=== PATIENT | female | born 1995 | race Hispanic/Latino ===

== ENCOUNTER 2024-10-30 09:32 | Emergency (ER) | payer OTHER ==
--- OUTSIDE RECORDS SUMMARY | 2024-10-30 09:37 | XMS REPORT | Continuity of Care Document ---
Author Name Unknown Address [address] [facility]. [address] [place] [address] [facility] Address [address] [facility] [address] [place] [address] Care Team Providers Care Inverter And Clipper Name Role Phone OTHER, ENTER NAME IN NOTES Primary Care Physicia n Unavailable MARTHA SIDDIQI Attending Clinician Unavail able LUCIANO HASSAN Attending Clinician Unavailable YURIDIA TERRELL Attending Clinician Unavailab ISIDRO Ibrahim Attending Clinician Unavai ZACHERY Justin Attending Clinician Unavailable AMBREEN_FARHANA Attending Clinician Unavailable CIRILO MUÑIZ Attending Clinician Unavaila LUZ Richards Attending Clinician Unavailabl e Nguyen_Tho Attending Clinician Unavailable SANTI CAMARENA Attending Clinician Unavailab le CHEVY_DEBBIE Attending Clinician Unavailable EVI ERICKSON Attending Clinician Unavailable DR ISAAC MUHAMMAD Attending Clinician Unavaila JAYESH Hale [facility] Attending Clinician Gabbi CAROLYN Nunez Attending Clinician Unavail able COCO KOENIG Attending Clinician Unavailable Georgina Attending Clinician Unavailable PARTHA MICHAEL Attending Clinician Unavail able SIMONE BISHOP Attending Clinician Unavailab cris LOUIS, DR FRAIRE Attending Clinician Unavailable G_Pappas Attending Clinician Unavailable OSEI, DR MOORE Attending Clinician Unavailable CONG MEHTA Attending Clinician [phone] SHERICE HALL Attending Clinician [phone] [facility], PROVIDER Attending Clinician Unava ilkashmir HODGE, DR SMILEY Attending Clinician Unava ilHASEEB Villaseñor Attending Clinician [phone] YOLANDA PONCE Attending Clinician Unaarvind MEHTA, DR GAR Attending Clinician Unavailab cris VILLANUEVA, NURSE Attending Clinician Unavailable UZMA, DR RODRIGUEZ Attending Clinician Unavailable TON ELLER Attending Clinician Unavailab ALEXANDRA Ferro Attending Clinician Unavailable COCO MONTEMAYOR Attending Clinician UnavailNORIS Smith Attending Clinician Unavailable BRITTANY MEDRANO Attending Clinician Unavailable HOWARD VERGARA Attending Clinician Unavailable WILBERT SANTORO Attending Clinician Unavailab HARRIET Dumont Attending Clinician Unavailable AMBREEN_FARHANA Admitting Clinician Unavailable TON KEARNS Admitting Clinician Unavailab CAROLYN Rivera Admitting Clinician Unavail able Nguyen_Tho Admitting Clinician Unavailable CHEVY_DEBBIE Admitting Clinician Unavailable DR ISAAC MUHAMMAD Admitting Clinician Unavaila tona Erickson Admitting Clinician Unavailable DR JUNO LOUIS Admitting Clinician Unavailable Jose J_Mayra Admitting Clinician Unavailable DR TERESA FRANZ Admitting Clinician Unavailable AYESHA, DR SMILEY Admitting Clinician Unava ilkashmir MEHTA, DR GAR Admitting Clinician Unavailab cris GUSMAN, DR RODRIGUEZ Admitting Clinician Unavailable TON ELLER Admitting Clinician UnavailCOCO Rubi Admitting Clinician Unavailabl e Payers Payer Name Policy Type Policy Number Effective Date Expirati on Date Source [facility] [id number] 2022 00:00:00 [facility] (MEDICAID HMO) [id number] 2016 00:00:00 0775 [id number] 2022 00:00:00 [place] [facility] [id number] Problems Condition Name Condition Details Condition Category Status Onset Date Resolution Date Last Treatment Date Treating Clinician Comments Source Allergic rhinitis Allergic Rhinitis Problem Active 05-14 00:00: 00 [facility] Nasal congestion Nasal Congestion Problem Active 05-14 00:00: 00 [facility] Carrier of disorder Carrier of Disorder Problem Active 2017-08 00:00: 00 [facility] Seasonal allergic rhinitis Seasonal Allergic Rhinitis Problem Active 05-02 00:00: 00 [facility] Acute constipati on Acute Constipati on Problem Active 03-18 00:00: 00 [facility] Generalize d headache Generalize d Headache Problem Active 03-18 00:00: 00 [facility] Bipolar disorder Complaint [facility] Posttrauma tic stress disorder Complaint [facility] Anxiety disorder Complaint [facility] Bipolar affective disorder, currently depressed, moderate Complaint [facility] Generalize d anxiety disorder Complaint [facility] History of clinical finding in subject Complaint [facility] History of alcohol abuse Complaint [facility] Long-term current use of drug therapy Complaint [facility] Acute laryngopha ryngitis [facility] 41 weeks gestation of Problem [facility]dominal discomfort Problem [facility] Abdominal pain [facility] Anemia Problem [facility] Infection due to severe acute respirator y syndrome coronaviru s 2 (SARS-CoV- 2) Problem [facility] Cannabinoi d hyperemesi s syndrome Problem [facility] Cannabis abuse Problem [facility] Chronic abdominal pain Problem [facility] Constipati on Problem [facility] Contusion of left knee Problem [facility] Encounter for counseling Problem [facility] Delivery by section of full-term Problem [facility]arrhea Problem [facility] Discomfort during Problem [facility] Elevated liver enzymes Problem [facility] Encounter for laboratory testing for severe acute respirator y syndrome coronaviru s 2 (SARS-CoV- 2) Problem [facility] Enteritis [facility] Influenza- like symptoms Problem [facility] Gastroente ritis Problem [facility] Generalize d abdominal pain Problem [facility]ache Problem [facility] Helicobact er pylori [facility] Hematuria Problem [facility] Hypokalemi a Problem [facility] Ileitis Problem [facility] Muscle strain Problem [facility] Nausea and vomiting Problem [facility] Nausea, vomiting, and diarrhea Problem [facility] Non-reassu ring heart rate or rhythm affecting management of mother Problem [facility] Normal intrauteri ne on ultrasound Problem [facility] Opiate abuse, episodic [facility] Cyst of ovary Problem [facility] Pain [facility] pelvis Problem [facility] test positive Problem [facility] Pruritic rash Problem [facility] Calculus [facility] kidney Problem [facility] Renal colic Problem [facility] Arthralgia of temporoman dibular joint Problem [facility] Upper respirator y tract infection Problem [facility] Vomiting Problem [facility] Worries Problem [facility] Allergies, Adverse Reactions, Alerts Allergy Name Allergy Type Status Severity Reaction(s) Onset Date Inactive Date Treating Clinician Comments Source No known drug allergy Miscella neous allergy Active 2022-08 0 00:00: 00 [facility] No known drug allergy Miscella neous allergy Active 2022-08 0 00:00: 00 [facility] No Known Drug Allergie s DA Active [facility] Social History Social Habit Start Date Stop Date Quantity Comments Source History of tobacco use [facility] Sex Assigned At Female [facility] Non-smoker 2022-06-28 12:00:00 2022-06-28 12:00:00 [facility] Smoking Status Start Date Stop Date Source Never Smoker [facility] Unknown if ever smoked [facility] Medications Ordered Medication Name Filled Medication Name Start Date Stop Date Current Medication? Ordering Clinician Indication Dosage Frequency Signature (SIG) Comments Components Source Amoxicillin /Clavulanat e Potassium (Augmentin *) 875 Mg TAB Amoxicillin /Clavulanat e Potassium (Augmentin *) 875 Mg TAB 2023-08 10:42: 00 Yes 1 [facility] Prednisone (Prednisone *) 20 Mg TAB Prednisone (Prednisone *) 20 Mg TAB 2023-08 10:42: 00 Yes 2 [facility] Pseudoephed -Bromphen-D m (Bromphen/P seudoephedr ine 30-2-10 Mg/5ML) 1 Syp Syrup Pseudoephed -Bromphen-D m (Bromphen/P seudoephedr ine 30-2-10 Mg/5ML) 1 Syp Syrup 2023-08 19:11: 00 Yes 10 [facility] Benzonatate (Tessalon *) 100 Mg CAP Benzonatate (Tessalon *) 100 Mg CAP 2023-08 19:11: 00 Yes 1 [facility] Ondansetron Hcl (Zofran *) 4 Mg Tablet Disint Ondansetron Hcl (Zofran *) 4 Mg Tablet Disint 12-09 17:08: 00 Yes 1 [facility] Elizabeth Johnson - 04:00: 00 02-16 04:00 :00 No 1{Evelia le} [facility] Nirmatrelvi r-Ritonavir 300/100 Mg (Paxlovid 300MG/100MG ) 1 Tab Tab Ther Pack Nirmatrelvi r-Ritonavir 300/100 Mg (Paxlovid 300MG/100MG ) 1 Tab Tab Ther Pack 10-03 10:44: 00 Yes 1 [facility] Azithromyci n (Zithromax Z-Anirudh *) 250 Mg TAB Azithromyci n (Zithromax Z-Anirudh *) 250 Mg TAB 10-03 09:23: 00 Yes 1 [facility] Ketorolac Tromethamin e (Toradol 10 Mg*) 10 Mg TAB Ketorolac Tromethamin e (Toradol 10 Mg*) 10 Mg TAB 02-02 22:23: 00 Yes 1 [facility] Tamsulosin Hcl (Flomax *) 0.4 Mg CAP Tamsulosin Hcl (Flomax *) 0.4 Mg CAP 02-02 22:23: 00 Yes 1 [facility] Dicyclomine Hcl (Dicyclomin e Hcl 20 Mg (Bentyl) *) 20 Mg TAB Dicyclomine Hcl (Dicyclomin e Hcl 20 Mg (Bentyl) *) 20 Mg TAB 12-01 03:37: 00 Yes 20 [facility] Ondansetron Hcl (Zofran *) 4 Mg TAB Ondansetron Hcl (Zofran *) 4 Mg TAB 12-01 03:37: 00 Yes 4 [facility] Ferrous Sulfate (Iron 325 Mg *) 325 Mg TAB Ferrous Sulfate (Iron 325 Mg *) 325 Mg TAB 01-28 20:21: 41 01-28 19:21 :00 No 1 [facility] Acetaminoph en W/ Codeine #3 * (Tylenol Codeine #3 300MG/30MG *) 1 Tab TAB Acetaminoph en W/ Codeine #3 * (Tylenol Codeine #3 300MG/30MG *) 1 Tab TAB 03-26 16:55: 00 03-26 17:31 :00 No 1 [facility] Xulane 150 mcg-35 mcg/24 hr transdermal patch 7 00:00: 00 No 1 patch by Transderma l route 1 time per week for 3 weeks [facility] ferrous sulfate 325 mg (65 mg iron) tablet 3 00:00: 00 No take 1 tablet (325 mg) by oral route 2 times per day [facility] hydroxyzine HCl 10 mg tablet TAKE ONE (1) TABLET BY MOUTH THREE TIMES A DAY NEEDED. hydroxyzine HCl 10 mg tablet TAKE ONE (1) TABLET BY MOUTH THREE TIMES A DAY NEEDED. No hydroxyzin e HCl 10 mg tablet TAKE ONE (1) TABLET BY MOUTH THREE TIMES A DAY NEEDED. [facility] trazodone 50 mg tablet TAKE ONE (1) TABLET BY MOUTH AT BEDTIME trazodone 50 mg tablet TAKE ONE (1) TABLET BY MOUTH AT BEDTIME No trazodone 50 mg tablet TAKE ONE (1) TABLET BY MOUTH AT BEDTIME [facility] Medrol (Anirudh) 4 mg tablets in a dose pack Take 1 dose pk by oral route as directed. Medrol (Anirudh) 4 mg tablets in a dose pack Take 1 dose pk by oral route as directed. No 1dose pk(s) Medrol (Anirudh) 4 mg tablets in a dose pack Take 1 dose pk by oral route as directed. [facility] valacyclovi r 1 gram tablet TAKE 1 TABLET TWICE A DAY BY ORAL ROUTE DIRECTED FOR 10 DAYS. valacyclovi r 1 gram tablet TAKE 1 TABLET TWICE A DAY BY ORAL ROUTE DIRECTED FOR 10 DAYS. No valacyclov ir 1 gram tablet TAKE 1 TABLET TWICE A DAY BY ORAL ROUTE DIRECTED FOR 10 DAYS. [facility] Immunizations Ordered Immunization Name Filled Immunization Name Date Status Comments Source influenza, injectable, quadrivalent, preservative free influenza, injectable, quadrivalent, preservative free Unknown Completed [facility] Tdap Tdap Unknown Completed [facility] Influenza, injectable, MDCK, quadrivalent Influenza, injectable, MDCK, quadrivalent Unknown Completed [facility] Vital Signs Vital Name Observation Time Observation Value Comments S ource BMI (Body Mass Index) 2024-09-11 00:00:00 21.2 kg/m2 [facility] Height 2024-09-11 00:00:00 59 [in_i] [facility] Body Weight 2024-09-11 00:00:00 1681 [oz_av] [facility] BP Systolic 2024-09-11 00:00:00 115 mm[Hg] [facility] BP Diastolic 2024-09-11 00:00:00 74 mm[Hg] [facility] Height 2024-07-04 08:57:[address] [facility] Weight 2024-07-04 08:57:[address] [facility] BMI (Body Mass Index) 2024-07-04 08:57:00 20.5 kg/m2 [facility] Height 2024-07-02 18:00:[address] [facility] Weight 2024-07-02 18:00:[address] [facility] BMI (Body Mass Index) 2024-07-02 18:00:00 20.6 kg/m2 [facility] BP Diastolic 2024-05-14 00:00:00 78 mm[Hg] [facility] Height 2024-05-14 00:00:00 60 [in_i] [facility] BMI (Body Mass Index) 2024-05-14 00:00:00 19.6 kg/m2 [facility] Body Weight 2024-05-14 00:00:00 1606 [oz_av] [facility] BP Systolic 2024-05-14 00:00:00 114 mm[Hg] [facility] BP Systolic 2024-03-17 00:00:00 127 mm[Hg] [facility] Height 2024-03-17 00:00:00 60 [in_i] [facility] Body Weight 2024-03-17 00:00:00 98.8 [lb_av] [facility] BMI (Body Mass Index) 2024-03-17 00:00:00 19.3 kg/m2 [facility] BP Diastolic 2024-03-17 00:00:00 89 mm[Hg] [facility] Body Weight 2023-06-04 00:00:00 1445 [oz_av] [facility] BP Systolic 2023-06-04 00:00:00 119 mm[Hg] [facility] Height 2023-06-04 00:00:00 60 [in_i] [facility] BMI (Body Mass Index) 2023-06-04 00:00:00 17.6 kg/m2 [facility] BP Diastolic 2023-06-04 00:00:00 79 mm[Hg] [facility] BP Diastolic 2023-02-08 00:00:00 87 mm[Hg] [facility] Height 2023-02-08 00:00:00 60 [in_i] [facility] BMI (Body Mass Index) 2023-02-08 00:00:00 17.2 kg/m2 [facility] BP Systolic 2023-02-08 00:00:00 131 mm[Hg] [facility] Body Weight 2023-02-08 00:00:00 88.2 [lb_av] [facility] BP Diastolic 2022-12-21 00:00:00 78 mm[Hg] [facility] Height 2022-12-21 00:00:00 60 [in_i] [facility] BMI (Body Mass Index) 2022-12-21 00:00:00 17.7 kg/m2 [facility] BP Systolic 2022-12-21 00:00:00 122 mm[Hg] [facility] Body Weight 2022-12-21 00:00:00 90.6 [lb_av] [facility] BP Diastolic 2022-09-26 00:00:00 75 mm[Hg] [facility] Height 2022-09-26 00:00:00 60 [in_i] [facility] BMI (Body Mass Index) 2022-09-26 00:00:00 18.7 kg/m2 [facility] BP Systolic 2022-09-26 00:00:00 115 mm[Hg] [facility] Body Weight 2022-09-26 00:00:00 95.8 [lb_av] [facility] BP Diastolic 2022-08-15 00:00:00 71 mm[Hg] [facility] Height 2022-08-15 00:00:00 60 [in_i] [facility] BMI (Body Mass Index) 2022-08-15 00:00:00 17.8 kg/m2 [facility] BP Systolic 2022-08-15 00:00:00 125 mm[Hg] [facility] Body Weight 2022-08-15 00:00:00 91 [lb_av] [facility] BP Diastolic 2022-05-15 00:00:00 76 mm[Hg] [facility] Height 2022-05-15 00:00:00 60 [in_i] [facility] BMI (Body Mass Index) 2022-05-15 00:00:00 17.4 kg/m2 [facility] BP Systolic 2022-05-15 00:00:00 122 mm[Hg] [facility] Body Weight 2022-05-15 00:00:00 1424 [oz_av] [facility] Height 2022-05-02 15:00:00 152.4 CM Weight 2022-05-02 15:00:00 40.82 KG BP Diastolic 2022-02-05 00:00:00 78 mm[Hg] [facility] Height 2022-02-05 00:00:00 60 [in_i] [facility] BMI (Body Mass Index) 2022-02-05 00:00:00 18.1 kg/m2 [facility] BP Systolic 2022-02-05 00:00:00 120 mm[Hg] [facility] Body Weight 2022-02-05 00:00:00 92.6 [lb_av] [facility] BP Diastolic 2021-10-24 00:00:00 82 mm[Hg] [facility] Height 2021-10-24 00:00:00 60 [in_i] [facility] BMI (Body Mass Index) 2021-10-24 00:00:00 19.3 kg/m2 [facility] BP Systolic 2021-10-24 00:00:00 120 mm[Hg] [facility] Body Weight 2021-10-24 00:00:00 99 [lb_av] [facility] Height 2021-08-25 00:00:00 60 [in_i] [facility] BMI (Body Mass Index) 2021-08-25 00:00:00 19.4 kg/m2 [facility] Body Weight 2021-08-25 00:00:00 1592 [oz_av] [facility] BP Diastolic 2021-08-23 00:00:00 77 mm[Hg] [facility] Height 2021-08-23 00:00:00 60 [in_i] [facility] BMI (Body Mass Index) 2021-08-23 00:00:00 19.4 kg/m2 [facility] BP Systolic 2021-08-23 00:00:00 128 mm[Hg] [facility] Body Weight 2021-08-23 00:00:00 1592 [oz_av] [facility] BP Diastolic 2021-07-20 00:00:00 74 mm[Hg] [facility] Height 2021-07-20 00:00:00 60 [in_i] [facility] BMI (Body Mass Index) 2021-07-20 00:00:00 21.1 kg/m2 [facility] BP Systolic 2021-07-20 00:00:00 117 mm[Hg] [facility] Body Weight 2021-07-20 00:00:00 108 [lb_av] [facility] BP Diastolic 2021-06-01 00:00:00 76 mm[Hg] [facility] Height 2021-06-01 00:00:00 60 [in_i] [facility] BMI (Body Mass Index) 2021-06-01 00:00:00 19.9 kg/m2 [facility] BP Systolic 2021-06-01 00:00:00 113 mm[Hg] [facility] Body Weight 2021-06-01 00:00:00 1632 [oz_av] [facility] BP Diastolic 2021-03-03 00:00:00 77 mm[Hg] [facility] Height 2021-03-03 00:00:00 60 [in_i] [facility] BMI (Body Mass Index) 2021-03-03 00:00:00 19.1 kg/m2 [facility] BP Systolic 2021-03-03 00:00:00 113 mm[Hg] [facility] Body Weight 2021-03-03 00:00:00 1568 [oz_av] [facility] Height 2020-12-22 16:00:00 152.4 CM Weight 2020-12-22 16:00:00 43.54 KG BP Diastolic 2020-12-21 00:00:00 60 mm[Hg] [facility] Height 2020-12-21 00:00:00 60 [in_i] [facility] BMI (Body Mass Index) 2020-12-21 00:00:00 18.6 kg/m2 [facility] BP Systolic 2020-12-21 00:00:00 120 mm[Hg] [facility] Body Weight 2020-12-21 00:00:00 1520 [oz_av] [facility] Height 2020-11-23 00:00:00 60 [in_i] [facility] BMI (Body Mass Index) 2020-11-23 00:00:00 18.9 kg/m2 [facility] BP Systolic 2020-11-23 00:00:00 117 mm[Hg] [facility] Body Weight 2020-11-23 00:00:00 96.6 [lb_av] [facility] BP Diastolic 2020-11-23 00:00:00 77 mm[Hg] [facility] BP Diastolic 2020-04-27 00:00:00 90 mm[Hg] [facility] Height 2020-04-27 00:00:00 60 [in_i] [facility] BMI (Body Mass Index) 2020-04-27 00:00:00 18.6 kg/m2 [facility] BP Systolic 2020-04-27 00:00:00 138 mm[Hg] [facility] Body Weight 2020-04-27 00:00:00 95 [lb_av] [facility] Heart Rate 2023-11-20 16:14:15 96.0 /min [facility] Systolic 2023-11-20 16:14:15 128.0 mm[Hg] [facility] Diastolic 2023-11-20 16:14:15 86.0 mm[Hg] [facility] Height 2023-11-20 16:14:15 152.4 cm [facility] Weight Kgs 2023-11-20 16:14:15 41.7 KG [facility] BMI 2023-11-20 16:14:15 18.0 kg/m2 [facility] Weight Kgs 2023-10-21 19:03:20 39.5 KG [facility] BMI 2023-10-21 19:03:20 17.0 kg/m2 [facility] Heart Rate 2023-10-21 19:03:20 99.0 /min [facility] Systolic 2023-10-21 19:03:20 123.0 mm[Hg] [facility] Diastolic 2023-10-21 19:03:20 81.0 mm[Hg] [facility] Height 2023-10-21 19:03:20 152.4 cm [facility] Heart Rate 2022-09-13 17:18:10 94.0 /min [facility] Respiration 2022-09-13 17:18:10 20.0 /min [facility] Systolic 2022-09-13 17:18:10 113.0 mm[Hg] [facility] Diastolic 2022-09-13 17:18:10 80.0 mm[Hg] [facility] Height 2022-09-13 17:18:10 152.4 cm [facility] Weight Kgs 2022-09-13 17:18:10 41.7 KG [facility] BMI 2022-09-13 17:18:10 18.0 kg/m2 [facility] Heart Rate 2022-07-19 20:08:48 76.0 /min [facility] Respiration 2022-07-19 20:08:48 20.0 /min [facility] Systolic 2022-07-19 20:08:48 104.0 mm[Hg] [facility] Diastolic 2022-07-19 20:08:48 70.0 mm[Hg] [facility] Height 2022-07-19 20:08:48 152.4 cm [facility] Weight Kgs 2022-07-19 20:08:48 40.4 KG [facility] BMI 2022-07-19 20:08:48 17.4 kg/m2 [facility] Body height 2019-03-12 10:50:00 60.00 [in_us] [facility] Body Weight 2019-03-12 10:50:00 88.00 [lb_av] [facility] Systolic 2019-03-12 10:50:00 114 mm[Hg] [facility] Diastolic 2019-03-12 10:50:00 75 mm[Hg] [facility] Heart Beat 2019-03-12 10:50:00 86 /min [facility] Body Temperature 2019-03-12 10:50:00 98.00 [degF] [facility] Respiratory Rate 2019-03-12 10:50:00 18 /min [facility] Body mass index 2019-03-12 10:50:00 17.20 kg/m2 [facility] Body height 2018-12-11 16:30:00 60.00 [in_us] [facility] Body Weight 2018-12-11 16:30:00 102.60 [lb_av] [facility] Systolic 2018-12-11 16:30:00 118 mm[Hg] [facility] Diastolic 2018-12-11 16:30:00 79 mm[Hg] [facility] Heart Beat 2018-12-11 16:30:00 94 /min [facility] Body Temperature 2018-12-11 16:30:00 97.80 [degF] [facility] Respiratory Rate 2018-12-11 16:30:00 18 /min [facility] Body mass index 2018-12-11 16:30:00 20.00 kg/m2 [facility] Body height 2018-11-28 11:11:00 60.00 [in_us] [facility] Patient Body Weight 2018-11-28 11:11:00 120.60 [lb_av] [facility] Systolic 2018-11-28 11:11:00 128 mm[Hg] [facility] Diastolic 2018-11-28 11:11:00 84 mm[Hg] [facility] Heart Beat 2018-11-28 11:11:00 76 /min [facility] Body Temperature 2018-11-28 11:11:00 98.30 [degF] [facility] Respiratory Rate 2018-11-28 11:11:00 18 /min [facility] Body mass index 2018-11-28 11:11:00 23.60 kg/m2 [facility] Body height 2018-11-21 16:40:00 60.00 [in_us] [facility] Patient Body Weight 2018-11-21 16:40:00 120.00 [lb_av] [facility] Systolic 2018-11-21 16:40:00 127 mm[Hg] [facility] Diastolic 2018-11-21 16:40:00 85 mm[Hg] [facility] Heart Beat 2018-11-21 16:40:00 88 /min [facility] Body Temperature 2018-11-21 16:40:00 98.70 [degF] [facility] Respiratory Rate 2018-11-21 16:40:00 18 /min [facility] Body mass index 2018-11-21 16:40:00 23.40 kg/m2 [facility] Body height 2018-11-12 13:36:00 60.00 [in_us] [facility] Body Weight 2018-11-12 13:36:00 119.80 [lb_av] [facility] Systolic 2018-11-12 13:36:00 119 mm[Hg] [facility] Diastolic 2018-11-12 13:36:00 79 mm[Hg] [facility] Heart Beat 2018-11-12 13:36:00 90 /min [facility] Body Temperature 2018-11-12 13:36:00 97.80 [degF] [facility] Respiratory Rate 2018-11-12 13:36:00 18 /min [facility] Body mass index 2018-11-12 13:36:00 23.40 kg/m2 [facility] Body height 2018-11-05 15:09:00 60.00 [in_us] [facility] Body Weight 2018-11-05 15:09:00 117.60 [lb_av] [facility] Systolic 2018-11-05 15:09:00 115 mm[Hg] [facility] Diastolic 2018-11-05 15:09:00 75 mm[Hg] [facility] Heart Beat 2018-11-05 15:09:00 82 /min [facility] Body Temperature 2018-11-05 15:09:00 97.70 [degF] [facility] Respiratory Rate 2018-11-05 15:09:00 18 /min [facility] Body mass index 2018-11-05 15:09:00 23.00 kg/m2 [facility] Body height 2018-07-29 14:34:00 60.00 [in_us] [facility] Body Weight 2018-07-29 14:34:00 101.20 [lb_av] [facility] Systolic 2018-07-29 14:34:00 108 mm[Hg] [facility] Diastolic 2018-07-29 14:34:00 64 mm[Hg] [facility] Heart Beat 2018-07-29 14:34:00 88 /min [facility] Body Temperature 2018-07-29 14:34:00 98.30 [degF] [facility] Respiratory Rate 2018-07-29 14:34:00 18 /min [facility] Body mass index 2018-07-29 14:34:00 19.80 kg/m2 [facility] Body height 2018-07-16 08:16:00 60.00 [in_us] [facility] Body Weight 2018-07-16 08:16:00 102.00 [lb_av] [facility] Systolic 2018-07-16 08:16:00 125 mm[Hg] [facility] Diastolic 2018-07-16 08:16:00 73 mm[Hg] [facility] Heart Beat 2018-07-16 08:16:00 91 /min [facility] Body Temperature 2018-07-16 08:16:00 97.40 [degF] [facility] Respiratory Rate 2018-07-16 08:16:00 20 /min [facility] Body mass index 2018-07-16 08:16:00 19.90 kg/m2 [facility] Procedures Procedure Date / Time Performed Performing Clinician Source Esophagogastroduodenoscopy 2022-11-08 00:00:00 [facility] Colonoscopy 2022-11-08 00:00:00 Volodymyr rojas [facility] US, abdomen, complete 2022-09-26 00:00:00 [facility] unlisted imaging order 2021-10-24 00:00:00 [facility] US, transvaginal 2021-07-20 00:00:00 Chadwick samaniego [facility] US, abdomen, complete 2021-03-03 00:00:00 [facility] Delivery 2017-10-10 00:00:00 [facility] Caesarean Section [facility] Encounters Start Date/Time End Date/Time Encounter Type Admission Type Attending Clinicians Care Facility Care Department Encounter ID Source 2023-03-12 15:38:36 Inpatient TEXANA TEXANA [id number] [facility] 2023-02-12 15:09:02 Outpatient [facility] [id number] [facility] 2023-02-12 11:41:05 Inpatient TEXANA TEXANA [id number] [facility] 2022-12-21 08:07:41 Inpatient TEXANA TEXANA [id number] [facility] 2022-10-15 12:30:00 Inpatient MARTHA AHUMADA [facility] [id number] [facility] 2022-09-28 14:40:04 Inpatient TEXANA TEXANA [id number] [facility] 2022-09-13 11:46:34 Inpatient TEXANA TEXANA [id number] [facility] 2022-07-20 08:41:47 Inpatient TEXANA TEXANA [id number] [facility] 2022-07-19 15:26:26 Inpatient TEXANA TEXANA [id number] [facility] 2022-06-28 11:20:30 Inpatient TEXANA TEXANA [id number] [facility] 2024-09-11 00:00:00 2024-09-11 00:00:00 MARBIN MicheleC: [address] [place] [address], [address], [place] [address] , Ph. G [facility] [id number] [facility] 2024-07-04 08:48:00 2024-07-04 10:55:00 Departed Emergency Room [facility] [id number] [facility] 2024-07-04 08:48:00 2024-07-04 10:55:00 Emergency ER LUCIANO HASSAN [facility] [id number] [facility] 2024-07-02 17:55:00 2024-07-02 19:16:00 Emergency ER YURIDIA TERRELL [facility] [id number] [facility] 2024-07-02 17:55:00 2024-07-02 19:16:00 Departed Emergency Room [facility] [id number] [facility] 2023-10-16 08:10:00 2024-06-24 08:45:00 Outpatient SELF/OTHER INDIVIDUAL ISIDRO CHAVIS [id number] [facility] 2024-05-14 00:00:00 2024-05-14 00:00:00 Maria A Parks, ACUTE SPECIALIST: [address], [place] [address] , Ph. [facility] - [facility] [phone] [facility] 2024-03-17 00:00:00 2024-03-17 00:00:00 Debbie Steven, ACUTE SPECIALIST: [address], [place] [address] , Ph. 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 [phone] [facility] 2023-12-10 15:00:00 2023-12-10 17:13:00 Emergency ER YURIDIA TERRELL [facility] [id number] [facility] 2023-12-07 19:11:00 2023-12-07 20:58:00 Emergency ER ZACHERY SKY [facility] [id number] [facility] 2023-10-16 08:10:00 2023-10-16 08:10:00 Outpatient SELF/OTHER INDIVIDUAL ISIDRO CHAVIS [id number] [facility] 2023-10-03 09:14:00 2023-10-03 11:35:00 Emergency ER YURIDIA TERRELL [facility] [id number] [facility] 2023-06-04 00:00:00 2023-06-04 00:00:00 Maria A Parks, ACUTE SPECIALIST: [address] [place] [address] , Ph. [facility] Primary Expansion [id number] [facility] 2023-02-08 00:00:00 2023-02-08 00:00:00 Martha Siddiqi MD: [id number], [address], [place] [address] , Ph. [facility] [id number] [facility] 2023-02-06 00:00:00 2023-02-06 00:00:00 Outpatient AMBREEN_FAR HANA [facility] [id number] [facility] 2023-02-06 00:00:00 2023-02-06 00:00:00 Outpatient AMBREEN_FAR HANA [facility] [id number] [facility] 2023-02-06 00:00:00 2023-02-06 00:00:00 Outpatient AMBREEN_FAR HANA [facility] [id number] [facility] 2023-02-06 00:00:00 2023-02-06 00:00:00 Outpatient AMBREEN_FAR HANA [facility] [id number] [facility] 2023-02-04 12:20:00 2023-02-04 19:07:00 Emergency E CIRILO MUÑIZ [facility] [id number] [facility] 2023-02-04 07:41:00 2023-02-04 11:45:00 Emergency ER LUZ KHAN [facility] [id number] [facility] 2023-02-04 00:00:00 2023-02-04 00:00:00 Outpatient Ngvinay_Lauroo [facility] [id number] [facility] 2023-02-02 19:54:00 2023-02-02 22:51:00 Emergency ER JEANELIALUZ BALLARD [facility] [id number] [facility] 2023-01-17 17:04:00 2023-01-17 21:06:00 Emergency ER SANTI CAMARENA [facility] [id number] [facility] 2022-12-21 00:00:00 2022-12-21 00:00:00 Outpatient LISTER_MELI SSA [facility] [id number] [facility] 2022-12-21 00:00:00 2022-12-21 00:00:00 Outpatient LISTER_MELI SSA [facility] [id number] [facility] 2022-12-21 00:00:00 2022-12-21 00:00:00 Martha Siddiqi MD: [id number], [address], [place] [address] , Ph. [facility] [id number] [facility] 2022-11-30 23:02:00 2022-12-01 04:21:00 Emergency ER EVI ERICKSON [facility] [id number] [facility] 2022-11-08 07:53:00 2022-11-08 07:53:00 Outpatient MARTHA AHUMADA [facility] [id number] [facility] 2022-09-26 00:00:00 2022-09-26 00:00:00 Outpatient LISTER_MELI SSA [facility] [id number] [facility] 2022-09-26 00:00:00 2022-09-26 00:00:00 Outpatient LISTER_MELI SSA [facility] [id number] [facility] 2022-09-26 00:00:00 2022-09-26 00:00:00 Martha Siddiqi MD: [id number], [address], [place] [address] , Ph. [facility] [id number] [facility] 2022-09-21 08:59:00 2022-09-21 09:40:00 Emergency ER LUZ KHAN [facility] [id number] [facility] 2022-08-15 00:00:00 2022-08-15 00:00:00 Outpatient LISTER_MELI SSA [facility] [id number] [facility] 2022-08-15 00:00:00 2022-08-15 00:00:00 Debbie Steven, ACUTE SPECIALIST: [address], [place] [address] , Ph. [facility] TRAFFIC MAINTENANCE OFFICER [id number] [facility] 2022-05-15 00:00:00 2022-05-15 00:00:00 Outpatient LISTER_MELI SSA [facility] [id number] [facility] 2022-05-15 00:00:00 2022-05-15 00:00:00 Adalberto Franz APRN-ACUTE SPECIALIST-C: [address] [place] [address] , Ph. [facility] [id number] [facility] 2022-05-02 14:55:00 2022-05-02 17:55:00 Outpatient ISAAC MAYO [facility] [id number] [facility] 2022-02-16 12:01:00 2022-02-16 12:01:00 Outpatient LISTER_MELI SSA [facility] [id number] [facility] 2022-02-06 09:10:00 2022-02-06 09:10:00 Outpatient LISTER_MELI SSA [facility] [id number] [facility] 2022-02-05 00:00:00 2022-02-05 00:00:00 Martha Siddiqi MD: [id number], [address], [place] [address] , Ph. [facility] [id number] [facility] 2022-01-31 04:00:00 2022-01-31 04:00:00 Outpatient LISTER_MELI SSA [facility] [id number] [facility] 2022-01-30 15:05:00 2022-01-30 19:14:00 Emergency E JAYESH FRANZ [facility] MED [id number] [facility] 2022-01-28 20:37:00 2022-01-30 13:10:00 Inpatient ER CAROLYN KEY [facility] MED [id number] [facility] 2021-11-08 09:01:00 2021-11-08 12:20:00 Emergency ER EVI ERICKSON [facility] [id number] [facility] 2021-10-25 05:26:00 2021-10-25 05:26:00 Outpatient LISTER_MELI SSA [facility] [id number] [facility] 2021-10-24 00:00:00 2021-10-24 00:00:00 Debbie Steven, ACUTE SPECIALIST: [address], [place] [address] , Ph. [facility] - [facility] TRAFFIC MAINTENANCE OFFICER [facility] 2021-10-23 03:33:00 2021-10-23 03:33:00 Outpatient LISTER_MELI SSA [facility] 2021-09-21 09:46:00 2021-09-21 10:50:00 Emergency ER COCO KOENIG [facility] [id number] [facility] 2021-08-25 00:00:00 2021-08-25 00:00:00 FARNAZ YadavP-C: [address], [place] [address] , Ph. [facility] [phone] 106 [facility] 2021-08-23 00:00:00 2021-08-23 00:00:00 Mary Jo Erickson, ACUTE SPECIALIST: [address] [facility] [address], [place] [address] , Ph. [facility] [id number] [facility] 2021-08-09 11:18:00 2021-08-09 13:32:00 Emergency ER PARTHA MICHAEL [facility] [id number] [facility] 2021-08-08 11:46:00 2021-08-08 11:46:00 Outpatient LISTER_MELI SSA [facility] [id number] [facility] 2021-07-27 04:05:00 2021-07-27 04:05:00 Outpatient LISTER_MELI SSA [facility] [id number] [facility] 2021-07-20 00:00:00 2021-07-20 00:00:00 Debbie Steven, ACUTE SPECIALIST: [address], [place] [address] , Ph. CHEVY_MARYI SSA [facility] [place] [facility]OP - [facility] [id number] [facility] 2021-06-26 04:51:00 2021-06-26 04:51:00 Outpatient CHEVY_MARYI SSA [facility] [id number] [facility] 2021-06-01 00:00:00 2021-06-01 00:00:00 Simnoe Bishop, ACUTE SPECIALIST: [place] [address] , Ph. CHEVY_MARYI SSA [facility] [id number] [facility] 2021-03-26 13:58:00 2021-03-26 17:04:00 Emergency ER COCO KOENIG [facility] [id number] [facility] 2021-03-15 08:37:00 2021-03-15 08:37:00 Outpatient SIMONE COELHO [facility] [id number] [facility] 2021-03-03 00:00:00 2021-03-03 00:00:00 Simone Bishop, ACUTE SPECIALIST: [address] [place] [address] , Ph. CHEVYANNE SSA [facility]OP [facility] [id number] [facility] 2020-12-22 15:58:00 2020-12-22 17:45:00 Outpatient JUNO LEONE [facility] [id number] [facility] 2020-12-21 00:00:00 2020-12-21 00:00:00 Adalberto Franz APRN-ACUTE SPECIALIST-C: [address] [place] [address] , Ph. CHEVY_MELI SSA [facility] [place] [facility] - [facility] [id number] [facility] 2020-11-23 00:00:00 2020-11-23 00:00:00 Debbie Steven, ACUTE SPECIALIST: [address], [place] [address] , Ph. CHEVY_MELI SSA [facility] [place] [facility] HOP - [facility] TRAFFIC MAINTENANCE OFFICER [id number] [facility] 2020-11-14 04:36:00 2020-11-14 04:36:00 Outpatient LISTER_MELI SSA [facility] [id number] [facility] 2020-07-06 02:21:00 2020-07-06 02:21:00 Outpatient G_[facility]appas [facility] [id number] [facility] 2020-05-04 11:19:00 2020-05-04 11:19:00 Outpatient LISTER_MELI SSA [facility] [id number] [facility] 2020-05-02 10:05:00 2020-05-02 10:05:00 Outpatient LISTER_MELI SSA [facility] [id number] [facility] 2020-04-27 00:00:00 2020-04-27 00:00:00 Debbie Steven, ACUTE SPECIALIST: [address], [place] [address] , Ph. CHEVY_MELI SSA [facility] [place] [facility] - [facility] TRAFFIC MAINTENANCE OFFICER [id number] [facility] 2019-07-27 12:30:00 2019-07-27 16:00:00 Outpatient TERESA HUERTAS [facility] [id number] [facility] 2019-03-16 00:00:00 2019-03-16 00:00:00 Outpatient CONG MEHTA [facility] [id number] [facility] 2019-03-12 00:00:00 2019-03-12 00:00:00 Outpatient CONG MEHTA [facility] [id number] [facility] 2018-12-11 16:30:00 2018-12-11 16:30:00 Outpatient HALLSHERICE [facility] [id number] [facility] 2018-12-11 00:00:00 2018-12-11 00:00:00 Outpatient ACCESSHEALT H, PROVIDER [facility] [id number] [facility] 2018-12-11 00:00:00 2018-12-11 00:00:00 Outpatient ACCESSHEALT H, PROVIDER [facility] [id number] [facility] 2018-12-01 05:15:00 2018-12-03 11:40:00 Inpatient C SONIA JOHNSON [facility] [id number] [facility] 2018-11-28 00:00:00 2018-11-28 00:00:00 Outpatient ACCESSHEALT H, PROVIDER [facility] [id number] [facility] 2018-11-28 00:00:00 2018-11-28 00:00:00 Outpatient ACCESSHEALT H, PROVIDER [facility] [id number] [facility] 2018-11-28 00:00:00 2018-11-28 00:00:00 Outpatient HALLSHERICE KOROMA [facility] [id number] [facility] 2018-11-26 00:00:00 2018-11-26 00:00:00 Outpatient HASEEB VELÁSQUEZ [facility] [id number] [id number] [id number] [id number]-[id number] ae69e2 [facility] 2018-11-21 00:00:00 2018-11-21 00:00:00 Outpatient ACCESSHEALT H, PROVIDER [facility] [id number] [facility] 2018-11-21 00:00:00 2018-11-21 00:00:00 Outpatient ACCESSHEALT H, PROVIDER [facility] [id number] e2-3mm9-79r [id number] 0f4 [id number] x2l-583l-m [id number]-[id number] 20e8ff [facility] 2018-11-21 00:00:00 2018-11-21 00:00:00 Outpatient HALLSHERICE KOROMA [facility] [id number] e2-5yd2-40a [id number]-[id number] 0f4 sajd2ttc-9 [id number] [id number] [facility] 2018-11-12 00:00:00 2018-11-12 00:00:00 Outpatient ACCESSHEALT H, PROVIDER [facility] [id number] [facility] 2018-11-12 00:00:00 2018-11-12 00:00:00 Outpatient ACCESSHEALT H, PROVIDER [facility] [id number] e2-5gt6-34y [id number]-uj3pdh773 0f4 [id number] [id number]-[id number] [id number] [facility] 2018-11-12 00:00:00 2018-11-12 00:00:00 Outpatient CONG MEHTA [facility] [id number] e2-0ij2-13f [id number]-cl1lpt562 0f4 [id number] 3ff-4fff-8 [id number] d6bfb7 [facility] 2018-11-12 00:00:00 2018-11-12 00:00:00 Outpatient HASEEB VELÁSQUEZ [facility] [id number] e2-3kh8-58e 0-wp0cdj064 0f4 [id number] [facility] 2018-11-11 00:00:00 2018-11-11 00:00:00 Outpatient HASEEB VELÁSQUEZ [facility] [id number] e2-0ng4-19y 0-[id number] 0f4 [id number] [facility] 2018-11-06 00:00:00 2018-11-06 00:00:00 Outpatient HASEEB VELÁSQUEZ [facility] [id number] e2-6vw6-33z 0-lp7xoj274 0f4 [id number] 078-40fe-9 [id number]-1or[address] fe2[address]3 [facility] 2018-11-05 00:00:00 2018-11-05 00:00:00 Outpatient ACCESSHEALT H, PROVIDER [facility] [id number] [facility] 2018-11-05 00:00:00 2018-11-05 00:00:00 Outpatient HASEEB VELÁSQUEZ [facility] [id number] [id number] 0f4 [id number] [facility] 2018-11-05 00:00:00 2018-11-05 00:00:00 Outpatient ACCESSHEALT H, PROVIDER [facility] [id number] [id number] 0f4 [id number] [facility] 2018-11-05 00:00:00 2018-11-05 00:00:00 Outpatient CONG MEHTA [facility] [id number] [id number] 0f4 [id number] [facility] 2018-09-11 13:30:00 2018-09-11 13:30:00 Outpatient YOLANDA HAY [facility] [id number] [facility] 2018-08-28 00:00:00 2018-08-28 00:00:00 Outpatient HASEEB VELÁSQUEZ [facility] [id number] [id number] [facility] 2018-08-27 00:00:00 2018-08-27 00:00:00 Outpatient ACCESSHEALT H, PROVIDER [facility] [id number] [facility] 2018-08-27 00:00:00 2018-08-27 00:00:00 Outpatient ACCESSHEALT H, PROVIDER [facility] [id number] [id number] 0f4 [id number] [facility] 2018-08-27 00:00:00 2018-08-27 00:00:00 Outpatient HASEEB VELÁSQUEZ [facility] [id number] [id number] [facility] 2018-07-29 00:00:00 2018-07-29 00:00:00 Outpatient ACCESSHEALT H, PROVIDER [facility] [id number] [facility] 2018-07-29 00:00:00 2018-07-29 00:00:00 Outpatient ACCESSHEALT H, PROVIDER [facility] [id number] [id number] 0f4 [id number] [facility] 2018-07-29 00:00:00 2018-07-29 00:00:00 Outpatient HASEEB VELÁSQUEZ [facility] [id number] [id number] 0f4 [id number] [facility] 2018-07-29 00:00:00 2018-07-29 00:00:00 Outpatient CONG MEHTA [facility] [id number] [id number]-[id number] 0f4 [id number] [facility] 2018-07-21 21:45:00 2018-07-22 01:11:00 Outpatient E CONG MEHTA [facility] [place] [id number] [facility] 2018-07-22 00:00:00 2018-07-22 00:00:00 Outpatient NURSE, NURSE [facility] [id number] [id number] 0f4 [id number] [id number] [facility] 2018-07-22 00:00:00 2018-07-22 00:00:00 Outpatient HASEEB VELÁSQUEZ [facility] [id number] [id number] 0f4 [id number] [facility] 2018-07-18 10:46:00 2018-07-18 23:59:00 Outpatient CONG SANDOVAL [facility] [id number] [facility] 2018-07-16 00:00:00 2018-07-16 00:00:00 Outpatient ACCESSHEALT H, PROVIDER [facility] [id number] [facility] 2018-07-16 00:00:00 2018-07-16 00:00:00 Outpatient ACCESSHEALT H, PROVIDER [facility] [id number] [id number]-[id number] 0f4 [id number] [facility] 2018-07-16 00:00:00 2018-07-16 00:00:00 Outpatient HC [id number] [id number] 0f4 [id number]-b [id number] [facility] 2018-07-16 00:00:00 2018-07-16 00:00:00 Outpatient HASEEB VELÁSQUEZ [facility] [id number] [id number] 0f4 [id number] [facility] 2018-07-15 00:00:00 2018-07-15 00:00:00 Outpatient ACCESSHEALT H, PROVIDER [facility] [id number] [facility] 2018-07-15 00:00:00 2018-07-15 00:00:00 Outpatient ACCESSHEALT H, PROVIDER [facility] [id number] [id number] 0f4 [id number]-[id number] [facility] 2018-07-15 00:00:00 2018-07-15 00:00:00 Outpatient NURSE, NURSE [facility] [id number] [id number] 0f4 [id number] [facility] 2018-06-19 15:19:00 2018-06-19 15:19:00 Outpatient EL YOLANDA PONCE [facility] [id number] [facility] 2018 23:39:00 2018-05-29 02:12:00 Emergency E JENNIFER GUSMAN [facility] [id number] [facility] 2018-05-19 12:57:00 2018-05-19 12:57:00 Outpatient YOLANDA HAY [facility] [id number] [facility] 2018-05-08 15:57:00 2018-05-08 16:20:00 Outpatient E ELLERTON [facility] [id number] [facility] 2018-05-05 10:19:00 2018-05-05 10:19:00 Outpatient YOLANDA HAY [facility] [id number] [facility] 2018-02-01 15:41:00 2018-02-01 16:45:00 Outpatient JUNO LEONE [facility] [id number] [facility] 2017-10-14 19:30:00 2017-10-14 22:05:00 Emergency ER ALEXANDRA SPICER [facility] [id number] [facility] 2017-10-09 16:59:00 2017-10-12 09:40:00 Inpatient COCO TATUM [facility] [id number] [facility] 2017-09-29 10:37:00 2017-09-29 14:20:00 Emergency ER COCO MONTEMAYOR [facility] [id number] [facility] 2017-08-27 15:03:00 2017-08-27 15:03:00 Outpatient NORIS CLEMENTE [facility] [id number] [facility] 2017-08-04 15:04:00 2017-08-04 15:50:00 Emergency ER BRITTANY MEDRANO [facility] [id number] [facility] 2017-07-15 09:24:00 2017-07-15 09:24:00 Outpatient COCO TATUM [facility] [id number] [facility] 2017-05-02 11:04:00 2017-05-02 11:04:00 Outpatient COCO TATUM [facility] [id number] [facility] 2017-04-27 00:36:00 2017-04-27 03:10:00 Emergency ER JAI HOWARD [facility] [id number] [facility] 2017-04-20 11:48:00 2017-04-20 14:32:00 Emergency ER FRANKYWILBERT DE LA ROSA [facility] [id number] [facility] 2017-03-18 11:50:00 2017-03-18 11:50:00 Outpatient COCO TATUM [facility] [id number] [facility] 2017-02-14 15:36:00 2017-02-14 18:57:00 Emergency ER HARRIET DIAZ [facility] [id number] [facility] 2017-02-07 15:46:00 2017-02-07 16:50:00 Emergency ER JAI, HOWARD [facility] [id number] [facility] 2016-11-08 09:07:00 2016-11-08 12:45:00 Emergency ER SYBILRonaldo ALEXANDRA [facility] [id number] [facility] Results Test Description Test Time Test Comments Results Result Co mments [facility], [id number] 17:18:00* Test Item Value Reference Range Interpretation Comme nts Strep (test code = Strep) negative [facility] Programpregnancy test, [id number] 15:14:00* Test Item Value Reference Range Interpretation Comme nts HCG (test code = HCG) negative [facility] Programpregnancy test, [id number] 16:07:00* Test Item Value Reference Range Interpretation Comme nts HCG (test code = HCG) negative [facility] ProgramCT ABDOMEN AND PELVIS WITH CONTRAST *OW*2022-05-02 16:59:44 [facility] 1995 Sex: FCT abdomen and pelvis with contrastLocation Code: [id number] HISTORY: Abdominal painCOMPARISON: NoneTechnique: Helical CT of the abdomen and pelvis was performed following intravenous contrast. Thin section axial,sagittal and coronal images were obtained. One or more of the following dose reduction techniques were used: Automated exposure control, adjustment of the mA and or KV according to patient size, and/or utilization of iterative reconstruction technique. DLP: 242.14 mGy- cm..FINDINGS:The lung bases are clear. The liver, gallbladder, adrenal glands, kidneys, pancreas, and spleen are unremarkable.The unopacified loops of bowel demonstrate no focal thickening or dilatation. The appendix is visualizedand is normal. There is no free peritoneal air or fluid. The abdominal aorta is normal in caliber and contour. There is no retroperitoneal mass or fluid collection. The urinary bladder is unremarkable. 2.6 cm left ovarian cyst noted is some free fluid in the cul-de-sac.The bones, skin, and surrounding soft tissues are unremarkable.IMPRESSION: 2.6 cm left ovarian cyst with some free fluid in the cu l-de-sac. No other evidence of acute intra-abdominal or pelvic pathology.Electronically signed by: Jayesh Alexander MD 05/02/2022 4:59 PM CDT -JbV (RAPID ANTIGEN) WH2022-05-02 15:55:00* Test Item Value Reference Range Interpretation Comme nts SARS-CoV (ANTIGEN) (test code = COVAG) NEGATIVE NEGATIVE COVID AG (test code = COVAGC) This test has been marketed under the FDA Emergency Use Authorization (EUA) to meet challenges of the COVID-19 pandemic. The validation standards normally enforced by the FDA and the [employer] (CAP) are more stringent than those required for this test. Therefore, the result should be interpreted with caution and close attention to other clinical and epidemiological data GENERAL CHEMISTRY 13 *OW* [id number] 15:52:00* Test Item Value Reference Range Interpretation Comme nts GLUCOSE (test code = GGUL) 76 mg/dL 73-118 BUN (test code = GBUN) 10 mg/dL 7-22 CREATININE (test code = GCRE) 0.7 mg/dL 0.6-1.2 URIC ACID (test code = GUA) 3.3 mg/dL 2.2-6.6 CALCIUM (test code = GCL+) 9.3 mg/dL 8.0-10.3 ALBUMIN (test code = GALB) 3.6 g/dL 3.5-5.5 PROTEIN (test code = GTP) 7.8 g/dL 6.4-8.1 ALT (test code = GALT) 13 U/L 10-47 AST (test code = YOVANY) 21 U/L 11-38 ALK PHOS (test code = GALP) 77 U/L 42-141 BILI TOTAL (test code = GTBIL) 0.7 mg/dL 0.2-1.6 GGT (test code = GGGT) 12 U/L 5-65 AMYLASE (test code = GAMY) 50 U/L 14-97 M[employer]te 8 Panel *OW* [id number] 15:44:00* Test Item Value Reference Range Interpretation Comme nts GLUCOSE (test code = GGUL) 80 mg/dL 73-118 BUN (test code = GBUN) 11 mg/dL 7-22 CREATININE (test code = GCRE) 0.8 mg/dL 0.6-1.2 CK TOTAL (test code = GCK) 97 U/L 30-190 SODIUM (test code = GNA+) 137 mmol/L 128-145 POTASSIUM (test code = GK+) 3.9 mmol/L 3.6-5.1 CHLORIDE (test code = GCL-) 107 mmol/L 98-108 TCO2 (test code = GTC02) 28 mmol/L 18-33 URINE OW2022-05-02 15:36:00* Test Item Value Reference Range Interpretation Comme nts PREG UR (test code = PGU) Negative NEGATIVE CBC (INCLUDES AUTOMATED DIFFERENTIAL) *2022-05-02 15:33:00* Test Item Value Reference Range Interpretation Comme nts WBC (test code = WBC) 9.2 10\\S\\3/uL 4.5-11.0 RBC (test code = RBC) 4.06 10\\S\\6/uL 4.30-5.70 L HGB (test code = HBG) 11.1 g/dL 12.0-15.5 L HCT (test code = HCT) 34.6 % 35.0-44.0 L MCV (test code = MCV) 85.2 fL 81.0-99.0 MCH (test code = MCH) 27.3 pg 27.0-31.0 MCHC (test code = MCHC) 32.1 g/dL 32.0-36.0 RDW (test code = RDW) 15.4 % 11.5-14.5 H PLT (test code = PLT) 511 10\\S\\3/uL 130-400 H MPV (test code = OMPV) 7.4 fL 6.2-10.2 NEUTROP # (test code = NE#) 6.1 10\\S\\3/uL 1.6-8.0 LYMPH # (test code = LY#) 2.3 10\\S\\3/uL 1.1-3.5 MID # (test code = GMID#) 0.7 10\\S\\3/uL 0.0-1.1 GRAN % (test code = GRA%) 66.7 % 35.0-73.0 LYMPH % (test code = GLY%) 25.3 % 20.0-55.0 MID % (test code = GMID%) 8.0 % 0.0-10.0 URINALYSIS W/O MICROSCOPICOW2022-05-02 15:33:00* Test Item Value Reference Range Interpretation Comme nts COLOR (test code = COLU) Yellow YELLOW CLARITY (test code = CLA) Clear CLEAR GLUCOSE UR (test code = UA GLUCOSE) Negative NEGATIVE BILI UR (test code = BILE) Negative NEGATIVE KETONES UR (test code = LELAND) Negative NEGATIVE SP GRAVITY (test code = SPGR) 1.020 1.005-1.030 PH UR (test code = PH) 7.5 4.5-8.0 PROTEIN UR (test code = PU) Negative NEGATIVE NITRITE UR (test code = NITRITE) Negative NEGATIVE UROBIL UR (test code = GUROQ) 0.2 E.U./dL UROBIL UR (test code = GUROQC) UROBILINOGEN REFERENCE RANGE 0.2 - 1.0 EU/dL BLOOD UR (test code = UA BLOOD) Negative NEGATIVE LEUK ES UR (test code = LEUK) Trace NEGATIVE CT + NG + TV, DNA, urine/[id number] 00:00:00* Test Item Value Reference Range Interpretation Comme nts Chlamydia trachomatis rRNA [Presence] in Specimen by EDIS with probe detection (test code = 04692-6) not detected not detected Neisseria gonorrhoeae rRNA [Presence] in Specimen by EDIS with probe detection (test code = 83185-2) not detected not detected comment (test code = comment) Trichomonas vaginalis rRNA [Presence] in Specimen by EDIS with probe detection (test code = 05039-5) not detected not detected [facility] Programpregnancy test, [id number] 14:50:00* Test Item Value Reference Range Interpretation Comme nts HCG (test code = HCG) negative [facility] Programpregnancy test, [id number] 09:34:00* Test Item Value Reference Range Interpretation Comme nts HCG (test code = HCG) negative [facility] ProgramPREGNANCY URINE OW2020-12-22 16:42:00* Test Item Value Reference Range Interpretation Comme nts PREG UR (test code = PGU) NEGATIVE NEGATIVE [employer] 8 Panel *OW* [id number] 16:41:00* Test Item Value Reference Range Interpretation Comme nts GLUCOSE (test code = GGUL) 95 mg/dL 73-118 BUN (test code = GBUN) 10 mg/dL 7-22 CREATININE (test code = GCRE) 0.6 mg/dL 0.6-1.2 CK TOTAL (test code = GCK) 96 U/L 30-190 SODIUM (test code = GNA+) 138 mmol/L 128-145 POTASSIUM (test code = GK+) 3.5 mmol/L 3.6-5.1 L CHLORIDE (test code = GCL-) 107 mmol/L 98-108 TCO2 (test code = GTC02) 25 mmol/L 18-33 GENERAL CHEMISTRY 13 *OW* [id number] 16:41:00* Test Item Value Reference Range Interpretation Comme nts GLUCOSE (test code = GGUL) 95 mg/dL 73-118 BUN (test code = GBUN) 10 mg/dL 7-22 CREATININE (test code = GCRE) 0.6 mg/dL 0.6-1.2 URIC ACID (test code = GUA) 3.5 mg/dL 2.2-6.6 CALCIUM (test code = GCL+) 9.0 mg/dL 8.0-10.3 ALBUMIN (test code = GALB) 3.9 g/dL 3.5-5.5 PROTEIN (test code = GTP) 7.9 g/dL 6.4-8.1 ALT (test code = GALT) 10 U/L 10-47 AST (test code = YOVANY) 21 U/L 11-38 ALK PHOS (test code = GALP) 75 U/L 42-141 BILI TOTAL (test code = GTBIL) 1.0 mg/dL 0.2-1.6 GGT (test code = GGGT) 9 U/L 5-65 AMYLASE (test code = GAMY) 50 U/L 14-97 URINALYSIS W/O MICROSCOPICOW2020-12-22 16:35:00* Test Item Value Reference Range Interpretation Comme nts COLOR (test code = COLU) YELLOW YELLOW CLARITY (test code = CLA) CLEAR CLEAR GLUCOSE UR (test code = UA GLUCOSE) NEGATIVE NEGATIVE BILI UR (test code = BILE) 1+ NEGATIVE A KETONES UR (test code = LELAND) NEGATIVE NEGATIVE SP GRAVITY (test code = SPGR) >=1.030 1.005-1.030 PH UR (test code = PH) 5.5 4.5-8.0 PROTEIN UR (test code = PU) TRACE NEGATIVE A NITRITE UR (test code = NITRITE) NEGATIVE NEGATIVE UROBIL UR (test code = GUROQ) 0.2 E.U./dL UROBIL UR (test code = GUROQC) UROBILINOGEN REFERENCE RANGE 0.2 - 1.0 EU/dL BLOOD UR (test code = UA BLOOD) NEGATIVE NEGATIVE LEUK ES UR (test code = LEUK) TRACE NEGATIVE A CBC (INCLUDES AUTOMATED DIFFERENTIAL) *2020-12-22 16:30:00* Test Item Value Reference Range Interpretation Comme nts WBC (test code = WBC) 12.8 10\\S\\3/uL 4.5-11.0 H RBC (test code = RBC) 4.35 10\\S\\6/uL 4.30-5.70 HGB (test code = HBG) 11.5 g/dL 12.0-15.5 L HCT (test code = HCT) 36.9 % 35.0-44.0 MCV (test code = MCV) 84.8 fL 81.0-99.0 MCH (test code = MCH) 26.4 pg 27.0-31.0 L MCHC (test code = MCHC) 31.2 g/dL 32.0-36.0 L RDW (test code = RDW) 15.7 % 11.5-14.5 H PLT (test code = PLT) 449 10\\S\\3/uL 130-400 H MPV (test code = OMPV) 7.8 fL 6.2-10.2 NEUTROP # (test code = NE#) 11.2 10\\S\\3/uL 1.6-8.0 H LYMPH # (test code = LY#) 1.1 10\\S\\3/uL 1.1-3.5 MID # (test code = GMID#) 0.5 10\\S\\3/uL 0.0-1.1 GRAN % (test code = GRA%) 87.5 % 35.0-73.0 H LYMPH % (test code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
[2024-10-30 10:50] LABS: Influenza A Ag Negative; Influenza B Ag Negative; SARS-CoV-2 Antigen Rapid Res Negative (Negative)
--- NOTE | 2024-10-30 11:17 | EDPHYS ---
Physician Documentation [facility] Name: Maggy Brown Age: 29 yrs Sex: Female : 1995 Arrival Date: 10/30/2024 Time: 09:32 Bed 12 Private MD: ED Physician Gino Dixon HPI: 10/30 09:48 This 29 yrs old Female presents to ER via Unassigned with complaints of Body rn aches, Sore Throat. 09:48 The patient presents with sore throat. The patient describes throat pain as raw. Onset: rn The symptoms/episode began/occurred yesterday. Severity of symptoms: At their worst the symptoms were mild, in the emergency department the symptoms are unchanged. Modifying factors: The symptoms are alleviated by nothing, the symptoms are aggravated by swallowing. The patient has experienced similar episodes in the past. Patient reports sore throat and bodyaches with subjective fever and chills that began yesterday. Reports had contact with family members who are positive for COVID but she took home COVID test and was negative. Reports mild cough but no shortness of breath. Does not smoke or vape. No vomiting or diarrhea. Historical: - Allergies: 10:03 No Known Allergies; hb - Home Meds: 10:03 None [Active]; hb - PMHx: 10:03 None; hb - PSHx: 10:03 section; hb - Immunization history:: Adult Immunizations up to date. - Infectious Disease History:: Denies. - Family history:: not pertinent. - Social history:: Smoking status: Patient denies any tobacco usage or history of. - Hospitalizations: : No recent hospitalization is reported. ROS: 09:48 Constitutional: Positive for fever and chills ENT: Positive for sore throat turn laster: Negative for chest pain, palpitations, and edema, Respiratory: Positive for cough, negative for shortness of breath Neuro: Negative for headache, weakness, numbness, tingling, and seizure, Exam: 09:48 Constitutional: This is a well developed, well nourished patient who is awake, alert, rn and in no acute distress. Ambulatory to room without difficulty or assistance ENT: Mild pharyngeal erythema and tonsillar swelling. No exudate. Neck: Nontender cervical lymphadenopathy. No meningismus Cardiovascular: Regular rate and rhythm. No pulse deficits. Respiratory: No increased work of breathing, no retractions or nasal flaring. Neuro: Awake and alert, GCS 15 Vital Signs: 10:01 BP 116 / 83; Pulse 94; Resp 16; Temp 100.1(O); Pulse Ox 99% on R/A; Weight 47.63 kg; hb Height 5 ft. 0 in. ; Pain 5/10; 10:01 Body Mass Index 20.51 (47.63 kg, 152.4 cm) hb 10:01 Pain Scale: Adult hb MDM: 09:37 Medical Screening Exam initiated rn 11:16 Differential diagnosis: group A strep tonsillitis, influenza, laryngitis, pharyngitis. rn Data reviewed: vital signs, nurses notes, lab test result(s), and as a result, I will discharge patient. Counseling: I had a detailed discussion with the patient and/or guardian regarding the historical points, exam findings, and any diagnostic results supporting the discharge/admit diagnosis, lab results, the need for outpatient follow up, to return to the emergency department if symptoms worsen or persist or if there are any questions or concerns that arise at home. Special discussion: I discussed with the patient/guardian in detail that at this point there is no indication for admission to the hospital. It is understood, however, that if the symptoms persist or worsen the patient needs to return immediately for re-evaluation. 10/30 09:37 Order name: COVID-19 Ag + Flu A+B Ag; Complete Time: 11:12 rn 10/30 09:37 Order name: Group A Streptococcus Rapid; Complete Time: 10:47 rn 10/30 10:43 Order name: Throat Culture EDMS Administered Medications: No medications were administered Disposition Summary: 10/30/24 11:16 Discharge Ordered Notes: Location: Home rn Problem: new rn Symptoms: are unchanged rn Condition: Stable rn Diagnosis - Acute pharyngitis, unspecified rn Followup: rn - With: Private Physician - When: As needed - Reason: Recheck today's complaints, Re-evaluation by your physician Discharge Instructions: - Discharge Summary Sheet rn - Pharyngitis rn - Sore Throat rn Forms: - Medication Reconciliation Form rn - Antibiotic clinical staff rn - Prescription Opioid Use rn - Patient Portal Instructions rn - Leadership Thank You Letter rn - Work release form hb Prescriptions: - Augmentin 875-125 mg Oral Tablet - take 1 tablet ORAL route every 12 hours for 10 days; 20 tablet; Refills: 0, rn Product Selection Permitted Signatures: Dispatcher [employer] Gino Mcintyre MD MD rn Baxter, Heather, RN RN hb Corrections: (The following items were deleted from the chart) 10:03 10:03 Allergies: Aspirin; hb hb
--- NOTE | 2024-10-30 11:17 | ER ---
Nurse's Notes [facility] Name: Maggy Brown Age: 29 yrs Sex: Female : 1995 Arrival Date: 10/30/2024 Time: 09:32 Bed 12 Private MD: Diagnosis: Acute pharyngitis, unspecified Presentation: 10/30 10:01 Chief complaint: Cough x 1 week, headache, sore throat, body aches, chills, and nausea hb today. Coronavirus screen: Client presents with at least one sign or symptom that may indicate coronavirus-19. Provider contacted for isolation considerations. Ebola Screen: No symptoms or risks identified at this time. Initial Sepsis Screen: Does the patient meet any 2 criteria? No. Patient's initial sepsis screen is negative. Does the patient have a suspected source of infection? No. Patient's initial sepsis screen is negative. Risk Assessment: Do you want to hurt yourself or someone else? Patient reports no desire to harm self or others. Onset of symptoms was October 24, 2024. 10:01 Method Of Arrival: Ambulatory hb 10:01 Acuity: MEHDI 4 hb Triage Assessment: 10:03 General: Appears in no apparent distress. ill, Behavior is calm, cooperative. Pain: hb Pain currently is 5 out of 10 on a pain scale. EENT: Reports sinus congestion, sore throat. Neuro: Level of Consciousness is awake, alert, obeys commands, Oriented to person, place, time, situation, Reports headache. Cardiovascular: Patient's skin is warm and dry. Respiratory: Reports cough that is Respiratory effort is even, unlabored, Respiratory pattern is regular, symmetrical. GI: Reports nausea. : No signs and/or symptoms were reported regarding the genitourinary system. Derm: Skin is pink, warm \T\ dry. Musculoskeletal: Reports body aches. Historical: - Allergies: 10:03 No Known Allergies; hb - Home Meds: 10:03 None [Active]; hb - PMHx: 10:03 None; hb - PSHx: 10:03 section; hb - Immunization history:: Adult Immunizations up to date. - Infectious Disease History:: Denies. - Family history:: not pertinent. - Social history:: Smoking status: Patient denies any tobacco usage or history of. - Hospitalizations: : No recent hospitalization is reported. Screenin:04 [facility] ED Fall Risk Assessment (Adult) History of falling in the last 3 months, hb including since admission No falls in past 3 months (0 pts) Confusion or Disorientation No (0 pts) Intoxicated or Sedated No (0 pts) Impaired Gait No (0 pts) Mobility Assist Device Used No (0 pt) Altered Elimination No (0 pt) Score/Fall Risk Level 0 - 2 = Low Risk Oriented to surroundings, Maintained a safe environment, Educated pt \T\ family on fall prevention, incl call for assistance when getting out of bed. Abuse screen: Denies threats or abuse. Denies injuries from another. Nutritional screening: No deficits noted. Tuberculosis screening: No symptoms or risk factors identified. Assessment: 10:04 General: See triage assessment. hb Vital Signs: 10:01 BP 116 / 83; Pulse 94; Resp 16; Temp 100.1(O); Pulse Ox 99% on R/A; Weight 47.63 kg; hb Height 5 ft. 0 in. ; Pain 5/10; 10:01 Body Mass Index 20.51 (47.63 kg, 152.4 cm) hb 10:01 Pain Scale: Adult hb ED Course: 09:36 Patient arrived in ED. mr 09:37 Gino Dixon MD is Attending Physician. rn 10:00 Amira Harrington, ELIO is Primary Nurse. hb 10:03 Triage completed. hb 10:03 Arm band placed on. hb 10:04 Patient has correct armband on for positive identification. Bed in low position. Call hb light in reach. Provided Education on: use of call light . 10:04 No provider procedures requiring assistance completed. Patient did not have IV access hb during this emergency room visit. Administered Medications: No medications were administered Medication: 10:04 VIS not applicable for this client. hb Outcome: 11:16 Discharge ordered by . rn 11:44 Patient left the ED. hb Signatures: Anupama Walden, Herbert Godinez Gino Dixon MD MD rn Amira Harrington, ELIO RN hb Corrections: (The following items were deleted from the chart) 10:03 10:03 Allergies: Aspirin; hb hb 10:04 10:01 Chief complaint: Cough x 1 week, headache, body aches, chills, and nausea today hbhb
[2024-10-30 12:01] VITALS: BP 116/83; TEMP 100.1; O2SAT 99
== END 2024-10-30 11:44 | disposition home or self-care (01) ==
LOC: ER 09:32
DX: J02.9 Acute pharyngitis, unspecified (principal); R05.9 Cough, unspecified; Z11.52 Encounter for screening for COVID-19
CPT/HCPCS: 36415; 87070; 87428; 99281